=== PATIENT | female | born 1965 | race Caucasian/White ===

== ENCOUNTER 2017-03-26 10:19 | Day surgery (SDC) | payer OTHER ==
[~2017-03-26] VITALS: Ht 157.5 cm; Wt 68.5 kg
[~2017-03-26 10:19] MED LIST: ADVIL200 MG PO; ASPIR-LOW81 MG PO; BENICAR20 MG PO; CLOPIDOGREL75 MG PO; DIOVAN160 MG PO; FLAXSEED OIL1000 M4 PO; GINSENG520 MG PO; LO-DOSE ASPIRIN81 M2 PO; MEGACE20 MG PO; MILK THISTLE500 MG PO; MULTIVITAMIN1 EAC2 PO; OMEGA III EPA1000 MG PO; POTASSIUM GLUCO90 MG PO; SUPER B COMPLE1 EAC1 PO; TURMERIC500 MG PO; VITAMIN E400 UNIT PO
[2017-03-26 10:48] VITALS: BP 124/84
[2017-03-26 15:30] VITALS: BP 134/87
[2017-03-26 16:20] VITALS: BP 126/80
[2017-04-01 09:46] LABS: INTERNAL CONTROL VALID? YES
== END 2017-03-26 16:35 | disposition home or self-care (01) ==
LOC: SDC 10:19
PROVIDERS: Orthopaedic Surgery
DX: M75.102 Unspecified rotator cuff tear or rupture of left shoulder, not specified as traumatic (principal); S46.812A Strain of other muscles, fascia and tendons at shoulder and upper arm level, left arm, initial encounter; M75.42 Impingement syndrome of left shoulder; M19.012 Primary osteoarthritis, left shoulder; I10 Essential (primary) hypertension; Z79.82 Long term (current) use of aspirin; Z80.1 Family history of malignant neoplasm of trachea, bronchus and lung; Z83.79 Family history of other diseases of the digestive system; I25.2 Old myocardial infarction
CPT/HCPCS: 84703; J0690; J2250; J2795; J3010; J7050